=== PATIENT | female | born 1990 | race Caucasian/White ===

== ENCOUNTER 2020-09-28 10:42 | Emergency (ER) | payer SELFPAY ==
[~2020-09-28] VITALS: Ht 172.7 cm; Wt 77.1 kg
[2020-09-28 10:47] VITALS: BP 135/99
[2020-09-28] MEDS ORDERED: METOCLOPRAMIDE 10 MG/2 ML INJ VIAL IVP ONE ×2 (11:15→13:25)
[2020-09-28] MEDS ORDERED: NACL 0.9% 1,000 ML IV ONE (11:15)
[2020-09-28] MEDS ORDERED: diphenhydrAMINE 50 MG/ML VIAL IVP ONE (11:15)
[2020-09-28 11:51] LABS: ALBUMIN 3.3 g/dL (3.4-5.0); ANION GAP 11.1 (8-16); CARBON DIOXIDE 27.7 mmol/L (21-32); CREATININE 0.7 mg/dL (0.6-1.3); POTASSIUM 3.8 mmol/L (3.5-5.1); TOTAL BILIRUBIN 0.4 mg/dL (0.0-1.0)
[2020-09-28 13:11] LABS: BILIRUBIN,URINE NEGATIVE (NEGATIVE); BLOOD, URINE NEGATIVE (NEGATIVE); COLOR,URINE YELLOW (YELLOW); LEUKOCYTE ESTERASE ,URINE NEGATIVE (NEGATIVE); NITRITE, URINE POSITIVE (NEGATIVE); UGLUCOSE NEGATIVE (NEGATIVE)
[2020-09-28 13:20] LABS: APPEARANCE,URINE SLIGHTLY HAZY (CLEAR); RBC,URINE 0-5 /HPF (0-5); WBC,URINE 0-5 /HPF (0-5)
[2020-09-28] MEDS ORDERED: LACTATED RINGERS 1,000 ML IV ONE (13:25)
[2020-09-28] MEDS ORDERED: METO-485 PO (13:37)
[2020-09-28] MEDS ORDERED: NITR100C7 PO (13:37)
== END 2020-09-28 14:45 | disposition home or self-care (01) ==
LOC: MED 10:42
DX: O21.8 Other vomiting complicating pregnancy (principal); O23.42 Unspecified infection of urinary tract in pregnancy, second trimester; F12.90 Cannabis use, unspecified, uncomplicated; Z3A.17 17 weeks gestation of pregnancy; Z79.899 Other long term (current) drug therapy
CPT/HCPCS: 36415; 80053; 81001; 81025; 96361; 96374; 96375; 96376; 99284; J1200; J2765; J7030; J7120